=== PATIENT | female | born 1970 | race Caucasian/White ===

== ENCOUNTER → 2018-03-21 08:57 | Outpatient (CLI) | payer OTHER, SELFPAY ==
--- NOTE | 2018-03-21 08:57 | RAD_ITS ---
STUDY: X-RAY - RIGHT WRIST REASON FOR EXAM: Lump at the base of the thumb, no specific injury. TECHNIQUE: 3 view(s) of the wrist were obtained. COMPARISON: None. FINDINGS: Normal visualized distal radius and ulna. Normal radiocarpal articulation. Normal distal radioulnar articulation. Normal carpal bones. Normal carpal articulations. Normal carpometacarpal articulation of the thumb. Normal second through fifth carpometacarpal articulations. Normal visualized metacarpal bones. The soft tissue structures are unremarkable. RAD/Wrist min 3 Views IMPRESSION: Normal x-ray examination of the right wrist. Electronically Signed: Efe Mcintosh MD at 11:35 EST Tel , Service support ,
== END ==
PROVIDERS: Family Provider Preventive Medicine Occupational Medicine; PCP Preventive Medicine Occupational Medicine; Referring Provider Orthopaedic Surgery; Visit Provider Orthopaedic Surgery
DX: M25.531 Pain in right wrist (principal)
CPT/HCPCS: 73110

== ENCOUNTER → 2018-03-24 11:01 | Outpatient (CLI) | payer OTHER, SELFPAY ==
--- NOTE | 2018-03-24 11:04 | US_ITS ---
STUDY: SUPERFICIAL ULTRASOUND - RIGHT WRIST REASON FOR EXAM: Female, 47 years old. Palpable lump TECHNIQUE: A superficial ultrasound was performed with real-time and static caballero-scale imaging. COMPARISON: None. FINDINGS: Ultrasound evaluation of the right wrist below the thumb shows a 0.5 x 0.6 x 0.4 cm subcutaneous cyst, likely a ganglion cyst. There is no sonographic evidence of inflammation or adenopathy or sinus cavity. US/Ext Non Vasc Limited/Soft Tiss IMPRESSION: Likely ganglion cyst measuring 0.5 x 0.6 x 0.4 cm. Electronically Signed: Mainor Hines MD at 14:46 EST , Service support ,
== END ==
PROVIDERS: Family Provider Nurse Practitioner Primary Care; PCP Nurse Practitioner Primary Care; Referring Provider Orthopaedic Surgery; Visit Provider Orthopaedic Surgery
DX: M71.331 Other bursal cyst, right wrist (principal)
CPT/HCPCS: 76882

== ENCOUNTER 2019-12-25 13:02 | Emergency (ER) | payer OTHER, SELFPAY ==
[2019-12-25 13:04] VITALS: BP 151/120; PULSE 71; RESP 16; TEMP 36.2; O2SAT 99; BMI 33.3
--- NOTE | 2019-12-25 13:22 | CT_ITS ---
STUDY: CT ABDOMEN AND PELVIS WITHOUT CONTRAST REASON FOR EXAM: Female, 49 years old. INTERMITTENT RIGHT FLANK PAIN X-SEVERAL DAYS, NAUSEA, HX-BREAST CA-BILAT MASTECTOMY, CHEMO AND RAD TX, DULCE/BSO RADIATION DOSAGE (If Supplied By Facility): CTDIvol = ( 13.64 ) mGy, DLP = ( 638.43 ) mGycm TECHNIQUE: Transaxial images were obtained from the dome of the diaphragm to the symphysis pubis without oral contrast, and without intravenous contrast. Sagittal and coronal images were reconstructed. Individualized dose optimization techniques were used for this CT. COMPARISON: 2011 FINDINGS: The visualized lung bases are unremarkable. The visualized portions of the heart are within normal limits. Normal liver. Normal gallbladder and extrahepatic biliary system. Normal spleen. Normal pancreas. Normal bilateral adrenal glands. No obstructive uropathy, there is a nonobstructing 6 mm stone in the lower pole of the right kidney Normal visualized stomach. Normal small intestine. Normal colon. The appendix is visualized and appears normal. Appendix best seen on coronal reconstructed image 59 Normal abdominal aorta. Normal inferior vena cava. Normal retroperitoneum. Normal urinary bladder. Normal abdominal wall. There are diffuse degenerative changes of the visualized lumbar spine, and pelvis. CT/Abdomen/Pelvis without Cont IMPRESSION: No suspicious solid organ abnormality, nonobstructing right nephrolithiasis No CT evidence of acute inflammatory process, normal appendix visualized No free intraperitoneal fluid, air, or suspicious adenopathy Electronically Signed: Mainor Hines MD at 15:15 EDT , Service support ,
[2019-12-25] MEDS: 0.9% Normal Saline 1,000 ML 1000 ML IV (13:50)
[2019-12-25 14:00] LABS: Bacteria 0 SEEN /hpf (None Seen); Mucous, Urine 0 SEEN /hpf (<or=2+); Red Blood Cells-Urine 0 SEEN /hpf (0-5); White Blood Cells 0 SEEN /hpf (0-5)
[2019-12-25 14:01] LABS: Absolute Neutrophil Count 6.4 X10^3/uL (2.0-7.7); Basophil# 0.02 X10^3/uL; Basophil% 0.2 % (0-1); Eosinophil# 0.03 X10^3/uL; Eosinophils% 0.4 % (0-5); Hematocrit 43.3 % (37-47); Hemoglobin 14.6 g/dL (12.0-15.0); Lymphocyte % 14.7 % (19-41); Mean Corp Hgb Conc 33.7 g/dL (32-36); Mean Corpuscular Hgb 30.8 pg (27.0-32.0); Mean Corpuscular Volume 91.4 fL (81-99); Mean Platelet Vol. 10.3 fl (6.2-12.0); Monocyte# 0.53 X10^3/uL; Monocyte% 6.5 % (0-10); NRBC Flagged by Analyzer 0 % (0-5); Neutrophil # 6.39 X10^3/uL (2.7-7.7); Neutrophil % 78.1 % (47-70); Platelet Count 242 K/mm3 (150-450); RBC Distribution Width CV 11.8 % (11.6-14.6); RBC Distribution Width SD 39.1 fl (35.1-43.9); Red Blood Count 4.74 M/mm3 (4.2-5.4); White Blood Count 8.2 K/mm3 (4.4-11.0)
[2019-12-25 14:02] LABS: Color, Urine Straw (Yellow); Glucose, Dipstick Normal (Normal); Ketone-Dipstick Negative (Negative); Leukocyte Esterase-Dipstick Negative /ul (Negative); Nitrite-Dipstick Negative (Negative); Occult Blood-Urine Negative /ul (Negative); Protein-Dipstick Negative (Negative); Specific Gravity, Urine 1.005 (1.002-1.030); Urine Bilirubin Dipstick Negative (Negative); Urine Clarity Sl. Cloudy (Clear); Urine Urobilinogen Normal (Normal)
[2019-12-25 14:13] LABS: Squamous Epithelial Cells - UA 0-5 SEEN /hpf (5-10)
[2019-12-25 14:18] LABS: ALB/GLOB Ratio 1.1 RATIO (0.9-2.4); AST(SGOT) 15 U/L (15-37); Alanine Aminotransfer ALT/SGPT 21 U/L (13-56); Albumin, Serum 4.2 g/dL (3.2-5.0); Alkaline Phosphatase 97 U/L (45-117); Anion Gap 5 (5-15); BUN 7 mg/dL (7-18); BUN/Creat Ratio 7.8 RATIO (10-20); Calcium,Total 9.5 mg/dL (8.5-10.1); Chloride 108 mmol/L (98-107); EST Glomerular Filtration Rate 71 mL/min (>60); Est Glom Filt Rate - Afr Amer 86 mL/min (>60); Estimated Creatinine Clearance 65.29 ml/min; Globulin 3.9 g/dL (2.2-4.2); Glucose 92 mg/dL (74-106); Lipase 51 U/L (73-393); Potassium 3.6 mmol/L (3.5-5.1); Protein, Total 8.1 g/dL (6.4-8.2); Sodium Level 142 mmol/L (136-145)
--- NOTE | 2019-12-25 14:18 | ED.VISSUMM ---
- ER Visit Summary Date of Service: 12/25/19 Chief Complaint: Right flank pain History of Present Illness: The patient is a [address] Medina. She reports that she has right flank pain that began approximately 1 week ago. Is been intermittent pain initially, but is been a constant dull pain since yesterday. Describes stabbing episodes of time. Is 9 at 10 at worst and 6 out of 10 currently. Is worsened by movement. Is unchanged by food. Nothing makes this better. She is had nausea without vomiting. No diarrhea. Her last bowel was today. She is passing flatus. She denies any dysuria or frequency. Patient reports he is never had anything like this before. She denies any history of fatty food intolerance. Physical Examination: Vitals: Stable. Afebrile. General: Well-nourished and well-developed. Head: Normocephalic atraumatic. Neck: Supple, no lymphadenopathy. No JVD. Nontender. Cardiovascular: Regular rate and rhythm. No murmurs. Respiratory: No respiratory distress. Clear to auscultation bilaterally. Abdominal: Soft, minimal right upper quadrant and epigastric tenderness to palpation, nondistended, normal bowel sounds. No guarding, rebound, or peritoneal signs. Back: No CVA tenderness. Extremities: Nontender, no edema. Skin: Normal color, no rash. Neurologic: Alert and oriented ?3. Cranial nerves II through XII are intact. Normal strength and sensation. Psych: Normal affect. Test Results: CBC shows segmented neutrophils of 78 lymphocytes 15. Chem-7 shows a chloride 108. LFTs are normal. UA is normal. Lipase is negative. Clinical Impression(s) from Imaging Studies Abdomen/Pelvis CT 12/25/19 13:22 IMPRESSION: No suspicious solid organ abnormality, nonobstructing right nephrolithiasis No CT evidence of acute inflammatory process, normal appendix visualized No free intraperitoneal fluid, air, or suspicious adenopathy Electronically Signed: Mainor Hines MD at 15:15 EDT , Service support , Emergency Department Course and Treatment: Patient had an IV placed. She was given a liter of normal saline. She refused pain or nausea medications. She is resting comfortably. Treatment Plan: Prolong discussion the patient this time I do not have an explanation for her flank pain. Return to the emergency department for any worsening symptoms. Disposition: To home in improved and stable condition. Impression: 1. Right flank pain, uncertain cause. This note was generated with [place] [employer] dictation software. It may contain incorrect words, spelling, and punctuation that were not noted in review of the chart prior to signing ED Disposition - Plan for ED Patient: Disposition: Home or Assisted Living Instructions: ED Flank Pain Uncertain Cause Referrals: Komal Medina NP-C [Primary Care Provider] - 3-5 Days if not improving
[2019-12-25 14:45] VITALS: BP 156/100
[2019-12-25 15:20] VITALS: RESP 16
[2019-12-25 15:39] VITALS: BP 158/100; RESP 16
--- NOTE | 2019-12-25 15:40 | ED.RN ---
REVIEWED D/C INSTRUCTIONS, FOLLOW UP CARE, AND S/S THAT WOULD WARRANT A RETURN TO THE ED WITH PT. PT VERBALIZED AN UNDERSTANDING AND DENIES FURTHER QUESTIONS FOR THIS RN. PT SKIN P/W/D, RESP EVEN AND UNLABORED, PT A&O X 3, NO DISTRESS NOTED. PT AMBULATED OUT OF ED, GAIT STEADY.
== END 2019-12-25 15:41 | disposition home or self-care (01) ==
LOC: ED 13:39
PROVIDERS: Emergency Provider Emergency Medicine; PCP Nurse Practitioner Primary Care
DX: R10.9 Unspecified abdominal pain (principal); E03.9 Hypothyroidism, unspecified; Z85.3 Personal history of malignant neoplasm of breast; Z79.899 Other long term (current) drug therapy
CPT/HCPCS: 74176; 80053; 81001; 83690; 85025; 96360; 96361; 99285; J7030; A4216

== ENCOUNTER → 2022-05-01 | Outpatient (CLI) | payer OTHER, SELFPAY ==
--- NOTE | 2022-05-01 08:32 | MRI_ITS ---
STUDY: MRI LUMBAR SPINE WITHOUT CONTRAST REASON FOR EXAM: Female, 51 years old. pain and radiculopathy bilat leg numbness and tingling. Hx of breast CA TECHNIQUE: Standardized fat and water weighted pulse sequences were obtained in the sagittal and axial planes. COMPARISON: X-ray the lumbar spine dated April 29, 2022. CT of abdomen and pelvis dated December 25, 2019 FINDINGS: Normal lumbar lordosis. There is no substantial scoliosis. Normal conus medullaris that terminates at the T12-L1 level. No marrow edema or fracture or compression deformity is present. Benign vertebral body hemangiomas are present at several levels. There are no visualized progressive lesions or evidence of metastatic disease to the bony structures. No nodules are seen within the thecal sac or nerve roots on the current study. T12-L1: Normal endplates. Mild disc desiccation. Small Schmorl''s node. Normal disc height. Normal bilateral facet joints. Normal central canal and bilateral lateral recesses. Normal bilateral intervertebral neural foramina. L1-2: Mild anterior endplate spurring. Small Schmorl''s node. Normal disc height. Normal bilateral facet joints. Normal central canal and bilateral lateral recesses. Normal bilateral intervertebral neural foramina. L2-3: On anterior endplate spurring. Normal disc height, hydration and morphology. Normal bilateral facet joints. Normal central canal and bilateral lateral recesses. Normal bilateral intervertebral neural foramina. L3-4: Mild anterior endplate spurring. Normal disc height, hydration and morphology. Normal bilateral facet joints. Normal central canal and bilateral lateral recesses. Normal bilateral intervertebral neural foramina. L4-5: Mild anterior endplate spurring.. Diffuse disc desiccation. Minimal posterior disc space narrowing. Small annular tear in the posterior midline to left paracentral aspect of the disc with a shallow disc. Mild facet joint hypertrophy. Normal central canal and bilateral lateral recesses. Normal bilateral intervertebral neural foramina. L5-S1: Normal endplates. Normal disc height, hydration and morphology. Normal bilateral facet joints. Normal central canal and bilateral lateral recesses. Normal bilateral intervertebral neural foramina. Normal visualized sacral ala. Normal visualized paraspinous soft tissue structures. MRI/Spine Lumbar (Routine) IMPRESSION: 1. Multilevel degenerative changes, as described above. 2. No evidence of primary or metastatic disease to the bony structures of the lumbar spine. 3. No visualized nodules or lesions within the thecal sac, nerve roots, or cord. Electronically Signed: Cuong De Oliveira MD at 10:18 [facility] ,
== END | disposition home or self-care (01) ==
PROVIDERS: PCP Nurse Practitioner Primary Care; Referring Provider Physician Assistant; Visit Provider Physician Assistant
DX: M54.10 Radiculopathy, site unspecified (principal)
CPT/HCPCS: 72148